=== PATIENT | male | born 1970 | race Caucasian/White ===

== ENCOUNTER → 2020-12-21 | Outpatient (CLI) | payer SELFPAY ==
[~2020-12-21] MED LIST: FLEXERIL10 MG PO; LISINOPRIL/HCTZ1 TA2 PO; MOTRIN800 MG PO; PROVENTIL0.09 MG/A1 IH
== END | disposition home or self-care (01) ==
LOC: RESCLI 11:55
PROVIDERS: ATTEND Internal Medicine
DX: E11.9 Type 2 diabetes mellitus without complications (principal); J45.909 Unspecified asthma, uncomplicated; E11.42 Type 2 diabetes mellitus with diabetic polyneuropathy; J30.2 Other seasonal allergic rhinitis; Z12.11 Encounter for screening for malignant neoplasm of colon; Z12.12 Encounter for screening for malignant neoplasm of rectum; I10 Essential (primary) hypertension; Z85.46 Personal history of malignant neoplasm of prostate; Z98.890 Other specified postprocedural states; Z79.899 Other long term (current) drug therapy

== ENCOUNTER 2024-12-08 13:01 | Emergency (ER) | payer OTHER ==
[~2024-12-08] VITALS: Ht 182.8 cm; Wt 91.2 kg
[2024-12-08] MEDS ORDERED: AMOXICILLIN875 MG PO (14:11)
== END 2024-12-08 14:18 | disposition home or self-care (01) ==
LOC: ED 13:01
DX: H65.92 Unspecified nonsuppurative otitis media, left ear (principal); H93.12 Tinnitus, left ear; Z79.899 Other long term (current) drug therapy